=== PATIENT | male | born 1985 | race Caucasian/White ===

== ENCOUNTER 2020-02-07 08:58 | Day surgery (SDC) | payer BC ==
[~2020-02-07 08:58] MED LIST: Lactated Ringers 1,000 ML IV SCH; Sodium Chloride 0.9% 10 ML SDV IV PRN; Sodium Chloride 0.9% 10 ML Syringe FLUSH PRN; Sodium Chloride 0.9% 2.5 ML Syringe FLUSH PRN; ceFAZolin 1 GM in Premix Bag 1 BAG IV ONE
--- NOTE | 2020-02-07 09:20 | PCM.PREANE ---
Preanesthetic Assessment - Anesthesia/Transfusion/Family Hx Anesthesia History: Prior Anesthesia Without Reaction Family History of Anesthesia Reaction: No Transfusion History: No Prior Transfusion(s) - Review of Systems General: No Symptoms Pulmonary: No Symptoms Cardiovascular: No Symptoms Gastrointestinal: No Symptoms Neurological: No Symptoms Other: Reports: None - Physical Assessment NPO Status Date: 02/06/20 Height: 5 ft 9 in Weight: 75.75 kg ASA Class: 2 Mental Status: Alert & Oriented x3 Airway Class: Mallampati = 2 Dentition: Reports: Broken Tooth/Teeth, Missing Tooth/Teeth, Caries ROM/Head Extension: Full Lungs: Clear to Auscultation, Normal Respiratory Effort Cardiovascular: Regular Rate, Regular Rhythm - Allergies Allergies/Adverse Reactions: Allergies Allergy/AdvReac Type Severity Reaction Status Date / Time No Known Allergies Allergy Verified 01/31/20 14:10 - Blood Blood Available: No - Anesthesia Plan Pre-Op Medication Ordered: None - Acknowledgements Anesthesia Type Planned: General Anesthesia Pt an Appropriate Candidate for the Planned Anesthesia: Yes Alternatives and Risks of Anesthesia Discussed w Pt/Guardian: Yes Pt/Guardian Understands and Agrees with Anesthesia Plan: Yes Additional Comments: PMH: vapes, poor dentition PLAN: ga/lma, spinal would be an accptable alternative PreAnesthesia Questionnaire HEENT History: Reports: Other (See Below) Other HEENT History: wears glasses Gastrointestinal History: Reports: Other (See Below) Other Gastrointestinal History: some heartburn- just avoids foods that cause it - Past Surgical History Head Surgeries/Procedures: Reports: None GI Surgical History: Reports: Hernia, Inguinal Other GI Surgeries/Procedures: Inguinal Hernia repair as a baby - SUBSTANCE USE Smoking Status *Q: Current Every Day Smoker Tobacco Use Within Last Twelve Months: Vaping Recreational Drug Use History: No - HOME MEDS Home Medications: Home Meds . [No Known Home Meds] 01/31/20 [History] - CURRENT (IN HOUSE) MEDS Current Meds: Current Medications Lactated Ringer's (Ringers, Lactated) 1,000 mls @ 125 mls/hr IV ASDIRECTED SANGEETA Sodium Chloride (Saline Flush) 10 ml FLUSH ASDIRECTED PRN PRN Reason: Keep Vein Open Sodium Chloride (Saline Flush) 2.5 ml FLUSH ASDIRECTED PRN PRN Reason: Keep Vein Open Sodium Chloride (Normal Saline) 10 ml IV ASDIRECTED PRN PRN Reason: IV Use Discontinued Medications Cefazolin Sodium/Dextrose 1 gm (/ Premix) 50 mls @ 100 mls/hr IV ONETIME ONE Stop: 02/01/20 12:15
[2020-02-07] MEDS ORDERED: Rocuronium 100 MG/10 ML Syringe ONE ×2 (09:48→11:02)
[2020-02-07] MEDS ORDERED: Dexamethasone 4 MG/ML 5 ML MDV ONE (09:48)
[2020-02-07] MEDS ORDERED: Ketorolac 30 MG/ML SDV ONE (09:48)
[2020-02-07] MEDS ORDERED: Propofol 200 MG/20 ML SDV ONE ×2 (09:48→09:51)
[2020-02-07] MEDS ORDERED: HYDROmorphone 2 MG/ML Syringe ONE (09:50)
[2020-02-07] MEDS ORDERED: Ondansetron 4 MG/2 ML SDV ONE (09:51)
[2020-02-07] MEDS ORDERED: Midazolam 1 MG/ML 2 ML SDV ONE (09:51)
[2020-02-07] MEDS ORDERED: fentaNYL 100 MCG/2 ML SDV ONE (09:51)
[2020-02-07] MEDS ORDERED: Sugammadex Sodium 200 MG/2 ML VIAL ONE (09:52)
[2020-02-07] MEDS ORDERED: Bupivacaine 0.5% 30 ML SDV ONE (10:00)
[2020-02-07] MEDS ORDERED: ceFAZolin 1 GM Vial ONE (10:40)
[2020-02-07] MEDS ORDERED: HYDROmorphone 2 MG/ML Syringe IVPUSH ONE (11:26)
[2020-02-07] MEDS ORDERED: Acetaminophen/oxyCODONE 325-5 MG Tab PO PRN (12:31)
--- NOTE | 2020-02-07 12:34 | PCM.OPNOTE ---
- General Post-Op/Procedure Note Date of Surgery/Procedure: 02/07/20 Operative Procedure(s): Right inguinal hernia repair Findings: Large right indirect inguinal hernia Pre Op Diagnosis: Inguinal hernia Post-Op Diagnosis: Right indirect inguinal hernia Anesthesia Technique: General ET Tube Primary Surgeon: Kamilla Griggs Fluid Replacement, Intraop: 1,500 EBL in mLs: 10 Condition: Good
--- NOTE | 2020-02-07 12:54 | PCM.POSTAN ---
POST ANESTHESIA ASSESSMENT - MENTAL STATUS Mental Status: Alert - VITAL SIGNS Vital Signs: Last Vital Signs Temp 36.4 C 02/07/20 12:29 Pulse 71 02/07/20 12:49 Resp 14 02/07/20 12:49 BP 102/50 L 02/07/20 12:49 Pulse Ox 96 02/07/20 12:49 - RESPIRATORY Respiratory Status: Respiratory Rate WNL - CARDIOVASCULAR CV Status: Pulse Rate WNL - GASTROINTESTINAL GI Status: No Symptoms - POST OP HYDRATION Hydration Status: Adequate & Stable
--- NOTE | 2020-02-07 13:40 | PCM48HPAN ---
Post Anesthesia Note - EVALUATION WITHIN 48HRS OF ANESTHETIC Vital Signs in Normal Range: Yes Patient Participated in Evaluation: Yes Respiratory Function Stable: Yes Airway Patent: Yes Cardiovascular Function Stable: Yes Hydration Status Stable: Yes Pain Control Satisfactory: Yes Nausea and Vomiting Control Satisfactory: Yes Mental Status Recovered: Yes Vital Signs: Last Vital Signs Temp 98.6 F 02/07/20 12:57 Pulse 50 L 02/07/20 13:28 Resp 14 02/07/20 13:28 BP 94/45 L 02/07/20 13:28 Pulse Ox 96 02/07/20 13:28
--- NOTE | 2020-02-07 14:11 | OR ---
SURGEON: KAMILLA GRIGSG MD DATE OF PROCEDURE: 02/07/2020 PREOPERATIVE DIAGNOSIS: Right inguinal hernia. POSTOPERATIVE DIAGNOSIS: Right indirect inguinal hernia. PROCEDURE PERFORMED: Right inguinal hernia repair with mesh. PRIMARY SURGEON: Kamilla Griggs MD ANESTHESIA: General endotracheal anesthesia. FLUIDS: 1500 mL of crystalloid. ESTIMATED BLOOD LOSS: 10 mL. FINDINGS: Indirect right inguinal hernia. Sac open. No bowel contents seen or palpated. Small plug and patch used to repair defect. COMPLICATIONS: None. INDICATIONS: The patient is a 35-year-old male who presents with an enlarging right inguinal hernia. I discussed the need for repair. The patient and I discussed the procedure as well as the expected perioperative course. We discussed the risks including bleeding, infection, or damage to surrounding structures. The patient verbalized understanding and wishes to proceed. PROCEDURE IN DETAIL: The patient was brought into the OR and placed on the OR table in supine position. A time-out was completed verifying the patient's name, age, date of , allergies, and procedure to be performed. General endotracheal anesthesia was induced. The groin and lower abdomen were prepped and draped in usual standard fashion. I anesthetized an area 2 fingerbreadths below the right inguinal ligament with 0.5% Marcaine plain. An oblique incision was made using a 15 blade. Cautery was used to dissect down to the level of the external oblique fascia. The external oblique fascia was opened along its fibers using a 15 blade. A Metzenbaum scissors was used to dissect underneath this fascia and then extend the incision laterally as well as medially through the external ring. The external fascia was then grasped with mosquitos and a superior and inferior plane were then developed underneath these. Identified the cord structures and them from the surrounding tissue. They were encircled with a Spring drain. I then inspected the floor of the inguinal canal. It appeared to be intact. I began dissection along the cord superiorly. I immediately encountered a large indirect hernia sac. This extended from the internal ring down toward the scrotum. It was grasped with hemostats and I dissected it free from the surrounding cremasteric fibers and the cord structures. Great care was taken to avoid damage to the spermatic cord, artery, and vein. They were identified and protected throughout the case. In order to guide my dissection, I opened the hernia sac. This was opened with Metzenbaum scissors. I digitally palpated inside the hernia sac. The hernia sac did not contain any fat or bowel contents. I freed up the hernia sac all the way up to the internal ring. When I was assured that there were no contents within the hernia sac, I then ligated it at its base using a 3-0 pursestring suture and tie. The cord was transected above the tie using cautery and passed off the field and sent to pathology, labeled as hernia sac. The cut end of my hernia sac stump was hemostatic and allowed to retract back into the abdomen. A small plug and patch was then brought into the field. A small patch was placed through the internal ring where the hernia sac had been. This was secured to the overlying fascia with interrupted 0 Ethibond sutures. A small patch was placed along the inguinal floor with its tails wrapped around my cord structures over the internal ring. This was trimmed to fit to allow good passage of the cord structures without strangulation. The mesh was sutured to the pubic tubercle medially along the ilioinguinal ligament inferiorly and along the conjoint tendon superiorly using interrupted 0 Ethibond sutures. Once this was secured in place, I again checked the opening through the mesh for my cord structures. This was open enough to accept just the tip of my finger. A Valsalva maneuver was performed which showed good integrity of the mesh and no recurrence of the inguinal hernia. I then irrigated my operative field and suctioned this out. During the case, the ilioinguinal nerve was identified and protected throughout the case. I closed my external oblique fascia with a running 3-0 Vicryl suture, taking care not to strangulate the cord and to recreate the external ring. I then closed the overlying subcutaneous fat with layers of both running 3-0 Vicryl suture and interrupted 3-0 Vicryl suture more superficially. The skin was then closed with a running 4-0 Monocryl stitch. Steri-Strips and sterile dressings were applied. The patient tolerated the procedure well and taken to PACU in stable condition. All counts were complete and correct at the end of the case. MONSE / ANTHONY /[id number]
== END 2020-02-07 15:20 | disposition home or self-care (01) ==
LOC: MW.SDS 08:58
PROVIDERS: ATTEND Surgery
DX: K40.90 Unilateral inguinal hernia, without obstruction or gangrene, not specified as recurrent (principal); Z87.891 Personal history of nicotine dependence
CPT/HCPCS: 49505; C1781; J0131; J0690; J1100; J1170; J1885; J2250; J2405; J2704; J3010; J3490; J7120; 88302